=== PATIENT | male | born 1975 | race Two or more races ===

== ENCOUNTER 2021-02-14 13:15 | Emergency (ER) | payer OTHER ==
[~2021-02-14] VITALS: Ht 182.9 cm; Wt 81.6 kg
--- NOTE | 2021-02-14 13:26 | NUR ---
BIB [facility] 37 WITH [facility] AND [facility] PET TEAM,RUNNING IN & OUT OF TRAFFIC,BANGING HEAD AGAINST POST,VERBALIZED HE DOESN'T WANT TO LIVE ANYMORE. VERBALIZES SI WITH NO PLAN. DENIES HI. IN ROOM AIR AND DENIES SOB. RESPIRATION REGULAR AND UNLABORED. SITTER AT THE BEDSIDE. WILL CONTINUE TO MONITOR THE PATIENT.
[2021-02-14 14:20] LABS: BASOPHILS % (AUTO) 0.4 % (0.0-2.0); EOSINOPHILS % (AUTO) 0.4 % (0.0-6.0); HEMATOCRIT 49 % (39-51); LYMPHOCYTES # (AUTO) 1.5 K/uL (0.8-4.8); LYMPHOCYTES % (AUTO) 11.5 % (20.0-44.0); MEAN CORPUSCULAR HGB CONC 33 g/dl (31.0-36.0); MEAN CORPUSCULAR VOLUME 90 fL (80-96); MONOCYTES # (AUTO) 1.5 K/uL (0.1-1.30); MONOCYTES % (AUTO) 11.6 % (2.0-12.0); NEUTROPHILS # (AUTO) 9.7 K/uL (1.8-8.9); NEUTROPHILS % (AUTO) 76.1 % (43.0-81.0); PLATELET COUNT (AUTO) 413 K/uL (150-450); RED BLOOD CELL COUNT(AUTO) 5.46 MIL/uL (4.5-6.0); WHITE BLOOD COUNT (AUTO) 12.7 K/uL (4.3-11.0)
--- NOTE | 2021-02-14 14:24 | NUR ---
COVID SWAB DONE AND SENT TO THE LAB
[2021-02-14 14:43] LABS: CALCIUM, SERUM 9.6 mg/dL (8.5-10.1); CARBON DIOXIDE 22 mmol/L (21-32); CHLORIDE 104 mmol/L (98-107); CREATININE 1.2 mg/dL (0.6-1.3); GLUCOSE 118 mg/dL (74-106); POTASSIUM 4.3 mmol/L (3.5-5.1); SODIUM SERUM 140 mmol/L (136-145); UREA NITROGEN, BLOOD 24 mg/dL (7-18)
[2021-02-14 14:49] LABS: ALANINE AMINOTRANSFERASE 56 U/L (12-78); ALKALINE PHOSPHATASE 79 U/L (46-116); ASPARTATE AMINOTRANSFERASE 24 U/L (15-37); BILIRUBIN,DIRECT 0.1 mg/dL (0.0-0.2); BILIRUBIN,TOTAL 0.4 mg/dL (0.2-1.0); TOTAL PROTEIN, SERUM 8.4 g/dL (6.4-8.2)
[2021-02-14 14:50] LABS: ACETAMINOPHEN < 10 ug/ml (10-30); ALCOHOL, BLOOD < 3 mg/dL (0-0)
[2021-02-14 15:27] LABS: BILIRUBIN,URINE SMALL (NEGATIVE); COLOR,URINE YELLOW (YELLOW); LEUKOCYTE ESTERASE ,URINE Negative (NEGATIVE); NITRITE, URINE Negative (NEGATIVE); PH,URINE 5.5 (5.0-8.0); PROTEIN,URINE 30 mg/dl (NEGATIVE); UGLUCOSE Negative (NEGATIVE); UROBILINOGEN,URINE 0.2 EU/dL (0.2)
[2021-02-14 15:33] LABS: BACTERIA,URINE Few /HPF (None Seen); MUCUS,URINE Few /LPF (None Seen); RBC,URINE 0-2 /HPF (0-2); WBC,URINE 0-2 /HPF (0-3)
[2021-02-14] MEDS ORDERED: HALOPERIDOL LACTATE INJ 5 MG/ML VIAL IM ONE (16:00)
[2021-02-14] MEDS ORDERED: HALOPERIDOL LACTATE INJ 5 MG/ML VIAL ONE (16:37)
[2021-02-14] MEDS ORDERED: LORAZEPAM INJ 2 MG/ML VIAL IM ONE (18:30)
[2021-02-14] MEDS ORDERED: LORAZEPAM INJ 2 MG/ML VIAL ONE (18:45)
--- NOTE | 2021-02-14 22:50 | NUR ---
FAXED CLINICALS AND FACE SHEET TO [facility], SPOKE TO GAURI WEAVER'Meghann
--- NOTE | 2021-02-14 23:57 | NUR ---
SPOKE WITH FELICITAS FROM [facility]. REQUESTING TO HAVE HOLD AND COVID RESULT FAXED
--- NOTE | 2021-02-15 00:04 | NUR ---
FAXED INQUIRIES TO [facility] [phone]
--- NOTE | 2021-02-15 00:22 | NUR ---
spoke with Gerson from [facility]. Will require a PCR covid test for patient prior to acceptance. [facility] will follow-up on the PCR result in a few days.
--- NOTE | 2021-02-15 00:28 | NUR ---
accepted to [place] room [address] Dr[address] Darnell. number for report is [phone]
--- NOTE | 2021-02-15 00:35 | NUR ---
[facility] BLS IN 45 MIN
--- NOTE | 2021-02-15 00:47 | NUR ---
covid swab done and sent to lab
--- NOTE | 2021-02-15 00:54 | NUR ---
report given to BRENDA Marmolejo for domonique at the [place].
--- NOTE | 2021-02-15 01:32 | NUR ---
REPORT GIVEN TO [place] [facility]AM FOR REBA. AND TRANSFERRING RESPONSIBILTIES.
[2021-02-15 01:33] VITALS: BP 142/71
== END 2021-02-15 01:34 ==
LOC: ER 13:17
DX: R45.851 Suicidal ideations (principal); F23 Brief psychotic disorder; F19.10 Other psychoactive substance abuse, uncomplicated; I10 Essential (primary) hypertension; Z91.14 Patient's other noncompliance with medication regimen; Z20.822 Contact with and (suspected) exposure to COVID-19
CPT/HCPCS: 36415; 80048; 80076; 80143; 80307; 80320; 81001; 85025; 87426; 96372 ×2; 99291; C9803 ×2; J1630; J2060; U0003; G0480